=== PATIENT | female | born 1980 | race Two or more races ===

== ENCOUNTER 2017-10-28 16:39 | Emergency (ER) | payer OTHER ==
[~2017-10-28] VITALS: Ht 170.2 cm; Wt 56.7 kg
[2017-10-28 16:46] VITALS: BP 117/75
[2017-10-28] MEDS ORDERED: ACETAMINOPHEN ES 500 MG TABLET PO ONE (17:00)
[2017-10-28] MEDS ORDERED: ACETAMINOPHEN ES 500 MG TABLET ONE (17:05)
== END 2017-10-28 17:13 | disposition home or self-care (01) ==
LOC: ER 16:40
DX: O26.891 Other specified pregnancy related conditions, first trimester (principal); S39.012A Strain of muscle, fascia and tendon of lower back, initial encounter; Z3A.01 Less than 8 weeks gestation of pregnancy; X58.XXXA Exposure to other specified factors, initial encounter; Y93.89 Activity, other specified; Y92.89 Other specified places as the place of occurrence of the external cause; Y99.8 Other external cause status
CPT/HCPCS: 99282; A4606; Z7610